=== PATIENT | female | born 1965 | race Caucasian/White ===

== ENCOUNTER 2016-10-05 18:15 | Emergency (ER) | payer MEDICAID ==
[2016-10-05] MEDS ORDERED: OPTIRAY 350 100 ML VIAL HMH IV ONE (18:16)
[2016-10-05] MEDS ORDERED: SODIUM CHLORIDE 0.9% 1,000 ML ONE (20:00)
[2016-10-05] MEDS ORDERED: ONDANSETRON 4 MG VIAL ONE ×2 (20:00→21:50)
[2016-10-05] MEDS ORDERED: DILAUDID 1 MG/ML AMP ONE (20:00)
== END 2016-10-05 22:02 | disposition home or self-care (01) ==
LOC: ER 18:15
DX: K52.9 Noninfective gastroenteritis and colitis, unspecified (principal); E03.9 Hypothyroidism, unspecified; E05.00 Thyrotoxicosis with diffuse goiter without thyrotoxic crisis or storm; F17.210 Nicotine dependence, cigarettes, uncomplicated
CPT/HCPCS: 36415; 74177; 80053; 83690; 84703; 85025; 96361; 96374; 96375; 96376